=== PATIENT | female | born 1975 | race African-American/Black ===

== ENCOUNTER 2017-03-31 08:40 | Outpatient (CLI) | payer OTHER ==
--- NOTE | 2017-03-31 10:43 | MRI ---
MRI CERVICAL SPINE: HISTORY: Shoulder and neck pain. FINDINGS: Multiplanar, multisequence noncontrast-enhanced MRI images cervical spine obtained. Comparison is ma de to previous exam from 06/14/14. MRI images cervical spine demonstrate a small mid cervical syrinx unchanged since the previous compar naomie exam at the C5 level. C1-2, C2-3: Unremarkable. C3-4: There is a mild broad-based disk bulge minimally but not significantly compressing the thecal sac. The neural foramen are patent. C4-5: There is a mild broad-based disk bulge minimally but not significantly compressing the thecal sac. The neural foramen are patent. C5-6: There is a broad-based disk-osteophyte complex centrally minimally but not significantly compr essing the thecal sac. The right neural foramen is patent. There is moderate left C5-6 neural derrell inal narrowing unchanged since the previous comparison exam. C6-7 and C7-T1: Unremarkable. IMPRESSION: 1. Broad-based disk bulges centrally at C4-5 and C5-6 with mild to moderate left C5-6 neural foramin al narrowing. 2. Stable C5 syrinx. POS: [facility]
== END 2017-03-31 08:41 | disposition home or self-care (01) ==
LOC: MRI 08:40
PROVIDERS: ATTEND Neurological Surgery
DX: M47.812 Spondylosis without myelopathy or radiculopathy, cervical region (principal); M50.221 Other cervical disc displacement at C4-C5 level; M50.222 Other cervical disc displacement at C5-C6 level; M99.51 Intervertebral disc stenosis of neural canal of cervical region
CPT/HCPCS: 72141

== ENCOUNTER 2017-07-19 15:27 | Outpatient (CLI) | payer OTHER ==
[~2017-07-19 15:27] MED LIST: Iopamidol 370 76% 100 ML VIAL ONE
== END 2017-07-19 15:28 | disposition home or self-care (01) ==
LOC: BICCT 15:27
PROVIDERS: ATTEND Internal Medicine Gastroenterology
DX: K59.00 Constipation, unspecified (principal); K63.89 Other specified diseases of intestine
CPT/HCPCS: 74177

== ENCOUNTER 2018-02-10 13:00 | Outpatient (CLI) | payer BC | END 2018-02-10 13:01 | disposition home or self-care (01) | LOC: BICMAMMO 13:00 | PROVIDERS: ATTEND Obstetrics & Gynecology | DX: Z12.31 Encounter for screening mammogram for malignant neoplasm of breast (principal); R92.1 Mammographic calcification found on diagnostic imaging of breast | CPT/HCPCS: 77063; 77067 ==

== ENCOUNTER 2018-02-24 12:53 | Outpatient (CLI) | payer BC ==
[~2018-02-24 12:53] MED LIST changes: +Gadobenate Dimeglumine 529 MG/1 ML (20ML VIAL) ONE; -Iopamidol 370 76% 100 ML VIAL ONE
--- NOTE | 2018-02-24 15:20 | MRI ---
MRI ALLIE WITH AND WITHOUT CONTRAST: History Vascular headache, headache x 1 year. Symptoms have worsened over the last 6 months. COMPARISON: None. TECHNIQUE: Brain MRI is performed with and without intravenous Gadolinium administration. Multisequential, mult iplanar imaging is performed. FINDINGS: Calvarium has a normal T1 marrow signal intensity. Midline brain parenchymal structures are unremark able. No hemorrhage on the axial gradient echo sequence. No parenchymal mass, mass effect, or midline shift. Brain volume is ager appropriate. Cortical santoro -white matter differentiation is preserved. Ventricles and sulci are patent and symmetric. No significant T2 and FLAIR white matter hyperintensi ties due to chronic small-vessel ischemic changes. Central arterial flow voids are maintained. Absent restricted diffusion. No pathologic enhancement of the brain parenchyma. Adequate aeration of the sinuses and mastoid air cells. IMPRESSION: 1. Absent restricted diffusion. 2. No acute infarct. 3. No pathologic enhancement of the brain parenchyma. POS: [facility]
== END 2018-02-24 12:54 | disposition home or self-care (01) ==
LOC: BICMRI 12:53
PROVIDERS: ATTEND Psychiatry & Neurology Neurology
DX: G44.1 Vascular headache, not elsewhere classified (principal)
CPT/HCPCS: 70553; A9579

== ENCOUNTER 2018-06-09 12:36 | Outpatient (CLI) | payer BC ==
[~2018-06-09 12:36] MED LIST changes: -Gadobenate Dimeglumine 529 MG/1 ML (20ML VIAL) ONE; +Iopamidol 370 76% 100 ML VIAL ONE
--- NOTE | 2018-06-09 15:17 | CT ---
CT ABDOMEN AND PELVIS WITH CONTRAST: Multiple axial tomograms are obtained through the abdomen and pelvis with IV enhancement. Oral contr ast was given. INDICATION: Epigastric pain. Nausea, reflux. Irritable bowel syndrome. COMPARISON: Comparison is made to CT of 07/19/2017. FINDINGS: Lung bases clear. Liver, spleen, and pancreas are unremarkable. There is mild fold thickening involving the duodenal C loop. There is mild nonspecific distention of jejunal loops with some mild fold thickening noted. Ileal loops are unremarkable with minimal distention. Colon unremarkable. No adenopathy. Aorta normal caliber. Images through the pelvis show evidence of 2 small adjacent cysts in the right pelvis. These were no johanna on the exam of 07/19/2017 and are essentially unchanged and are consistent with small ovarian cyst s. IMPRESSION: Mild fold thickening involving the duodenum and jejunum with mild nonspecific distention. Similar fi ndings were noted in 2018. Consider esophagogastroduodenoscopy and/or upper gastrointestinal to furt her evaluate. POS: [facility]
== END 2018-06-09 12:37 | disposition home or self-care (01) ==
LOC: BICCT 12:36
PROVIDERS: ATTEND Physician Assistant Medical
DX: R10.13 Epigastric pain (principal); K21.9 Gastro-esophageal reflux disease without esophagitis; K58.1 Irritable bowel syndrome with constipation; R11.0 Nausea; R13.10 Dysphagia, unspecified; K63.89 Other specified diseases of intestine
CPT/HCPCS: 74177; Q9967

== ENCOUNTER 2018-10-20 13:23 | Outpatient (CLI) | payer BC ==
--- NOTE | 2018-10-20 14:17 | MMO ---
Right Breast MAMMO Unilat Diag [facility]DI [facility]. CLINICAL HISTORY: Patient is 43 years old and is seen for diagnostic exam and lump or thickening in the right breast. The patient has no family history of breast cancer. The patient has no personal history of cancer. The patient has a history of left needle biopsy - benign. VIEWS: The views performed were: right craniocaudal with tomosynthesis; right mediolateral oblique with tomosynthesis; and right mediolateral with tomosynthesis. FILMS COMPARED: The present examination has been compared to prior imaging studies performed at [facility] on 05/13/2015, 06/24/2016, 02/10/2018 and 10/20/2018. MAMMOGRAM FINDINGS: The breast is heterogeneously dense, which could obscure a lesion on mammography. There are no suspicious masses, calcifications or areas of architectural distortion. There are benign appearing calcifications in the right breast. At the palpable marker, no mammographic abnormailty. Refer to separate US report. There are no suspicious masses, suspicious calcifications, or new areas of architectural distortion. IMPRESSION: THERE IS NO MAMMOGRAPHIC EVIDENCE OF MALIGNANCY. WITH REGARD TO THE PALPABLE FOCUS, FURTHER EVALUATION INCLUDING ADDITIONAL IMAGING AND/OR BIOPSY SHOULD BE BASED ON CLINICAL FINDINGS/SUSPICION. A ROUTINE FOLLOW-UP MAMMOGRAM IN 1 YEAR IS RECOMMENDED. THE RESULTS OF THIS EXAM WERE SENT TO THE PATIENT. ACR BI-RADS Category 2 - Benign finding MAMMOGRAPHY NOTE: 1. A negative mammogram report should not delay a biopsy if a dominant of clinically suspicious mass is present. 2. Approximately 10% to 15% of breast cancers are not detected by mammography. 3. Adenosis and dense breasts may obscure an underlying neoplasm. Reported by: VICTOR MANUEL GIBBONS MD Electonically Signed: [id number]
--- NOTE | 2018-10-20 16:20 | ULT ---
EXAM: RIGHT BREAST ULTRASOUND: 10/20/18 HISTORY: Palpable focus in the right breast. COMPARISON: 05/13/15. TECHNIQUE: Targeted sonographic imaging of the right breast performed at the 1 o'clock position, which is the re gion of concern. Static images are reviewed. After reading static images, real time imaging was perfo rmed in the presence of the radiologist. FINDINGS: Static and real time images demonstrate normal dense fibroglandular tissue. No solid or cystic masses . No shadowing architectural distortion. IMPRESSION: BIRADS 2: Benign Finding(s) Routine annual screening mammography (for women over age 40). RECOMMENDATIONS: Annual mammogram. With regard to the palpable focus, further evaluation including additional imaging and/or biopsy can be based upon clinical finding and/or suspicion. POS: [facility]
== END 2018-10-20 13:24 | disposition home or self-care (01) ==
LOC: BICMAMMO 13:23
PROVIDERS: ATTEND Clinical Nurse Specialist Medical-Surgical
DX: N63.10 Unspecified lump in the right breast, unspecified quadrant (principal)
CPT/HCPCS: G0279

== ENCOUNTER 2019-10-26 12:56 | Outpatient (CLI) | payer BC ==
--- NOTE | 2019-10-26 13:35 | MMO ---
Bilateral MAMMO Bilat Screen [facility]. CLINICAL HISTORY: Patient is 44 years old and is seen for screening. The patient has no family history of breast cancer. The patient has no personal history of cancer. The patient has a history of left needle biopsy - benign. VIEWS: The views performed were: bilateral craniocaudal with tomosynthesis and bilateral mediolateral oblique with tomosynthesis. FILMS COMPARED: The present examination has been compared to prior imaging studies performed at [facility] on 06/24/2016, 02/10/2018 and 10/20/2018. This study has been interpreted with the assistance of computer-aided detection. MAMMOGRAM FINDINGS: The breasts are heterogeneously dense, which could obscure a lesion on mammography. There are stable benign appearing calcifications seen in both breasts. A biopsy clip is seen in the left breast. There are no suspicious masses, suspicious calcifications, or new areas of architectural distortion. IMPRESSION: THERE IS NO MAMMOGRAPHIC EVIDENCE OF MALIGNANCY. A ROUTINE FOLLOW-UP MAMMOGRAM IN 1 YEAR IS RECOMMENDED. THE RESULTS OF THIS EXAM WERE SENT TO THE PATIENT. ACR BI-RADS Category 2 - Benign finding MAMMOGRAPHY NOTE: 1. A negative mammogram report should not delay a biopsy if a dominant of clinically suspicious mass is present. 2. Approximately 10% to 15% of breast cancers are not detected by mammography. 3. Adenosis and dense breasts may obscure an underlying neoplasm. Reported by: XANDER COX MD Electonically Signed: [id number]
== END 2019-10-26 12:57 | disposition home or self-care (01) ==
LOC: BICMAMMO 12:56
PROVIDERS: ATTEND Clinical Nurse Specialist Medical-Surgical
DX: Z12.31 Encounter for screening mammogram for malignant neoplasm of breast (principal); Z91.89 Other specified personal risk factors, not elsewhere classified
CPT/HCPCS: 77063; 77067

== ENCOUNTER 2020-02-18 08:34 | Outpatient (CLI) | payer BC ==
[2020-02-18] MEDS ORDERED: EPINEPHrine 1 MG/ML AMP ONE (09:11)
[2020-02-18] MEDS ORDERED: Gadobenate Dimeglumine 529 MG/1 ML (20ML VIAL) ONE (09:11)
[2020-02-18] MEDS ORDERED: Iopamidol 300 61% 50 ML VIAL FS ONE (09:11)
[2020-02-18] MEDS ORDERED: Lidocaine 1% PF 10 ML AMP ONE (09:11)
[2020-02-18] MEDS ORDERED: Magnevist 469MG/ML 20 ML VIAL ONE (09:22)
--- NOTE | 2020-02-18 11:33 | RAD ---
Exam: Left shoulder arthrogram HISTORY: Persistent left shoulder pain. FINDINGS: 3 view rehab nurse radiograph of left shoulder demonstrates preservation of glenohumeral joint space. No di slocation or fracture. Successful left shoulder arthrogram. Total of 13 mL of the contrast admixture was administered. Patie nt tolerated the procedure well. No immediate or postprocedure complications. Exposure: 38.2 mcg/cm2. 0.5 minutes. IMPRESSION: Successful left shoulder arthrogram. Transcribed Date/Time: 02/18/2020 12:28 PM
--- NOTE | 2020-02-18 12:04 | MRI ---
MRI Upper Ext Jt Lt W Con History: Shoulder pain Comparison: Shoulder radiographs November 2019 Findings: Biceps tendon: The extra articular and intra-articular biceps tendon is intact. Labrum: Intact. No labral tear. No significant paralabral ganglion pseudocyst. Rotator cuff: Supraspinatus and infraspinatus tendons are intact. No significant articular surface te aring. Subscapularis is intact. Teres minor is intact. Muscles: Muscle signal and bulk is maintained. Cartilage: No chondral defect. Bones: Mild degenerative changes of the acromioclavicular joint with small distal clavicular erosions . Moderate acromioclavicular joint effusion. Trace subacromial/subdeltoid bursa effusion. Type I acromion. Normal glenoid version. Impression: 1. Intact biceps tendon and acetabular labrum. 2. 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 3. Intact rotator cuff without tear. 4. Intact articular cartilage.
== END 2020-02-18 08:35 | disposition home or self-care (01) ==
LOC: RAD 08:34
PROVIDERS: ATTEND Orthopaedic Surgery
DX: M19.012 Primary osteoarthritis, left shoulder (principal); M89.512 Osteolysis, left shoulder; M25.412 Effusion, left shoulder
CPT/HCPCS: 23350; A9577; A9579; J0171; J2001; Q9967

== ENCOUNTER 2020-11-24 09:49 | Outpatient (CLI) | payer BC | END 2020-11-24 09:50 | disposition home or self-care (01) | LOC: BICRAD 09:49 | PROVIDERS: ATTEND Clinical Nurse Specialist Medical-Surgical | DX: J12.82 Pneumonia due to coronavirus disease 2019 (principal); J98.4 Other disorders of lung | CPT/HCPCS: 71046 ==

== ENCOUNTER 2020-12-12 09:44 | Outpatient (CLI) | payer BC | END 2020-12-12 09:45 | disposition home or self-care (01) | LOC: BICRAD 09:44 | PROVIDERS: ATTEND Clinical Nurse Specialist Medical-Surgical | DX: U07.1 COVID-19 (principal); J12.82 Pneumonia due to coronavirus disease 2019 | CPT/HCPCS: 71046 ==

== ENCOUNTER 2021-02-04 13:53 | Outpatient (CLI) | payer BC | END 2021-02-04 13:54 | disposition home or self-care (01) | LOC: BICRAD 13:53 | PROVIDERS: ATTEND Clinical Nurse Specialist Medical-Surgical | DX: B94.8 Sequelae of other specified infectious and parasitic diseases (principal) | CPT/HCPCS: 71046 ==

== ENCOUNTER 2021-06-05 13:04 | Outpatient (CLI) | payer BC | END 2021-06-05 13:05 | disposition home or self-care (01) | LOC: BICULT 13:04 | PROVIDERS: ATTEND Registered Nurse Community Health | DX: R10.32 Left lower quadrant pain (principal); R10.2 Pelvic and perineal pain; Z90.49 Acquired absence of other specified parts of digestive tract | CPT/HCPCS: 76770; 76856 ==

== ENCOUNTER 2021-06-12 11:01 | Outpatient (CLI) | payer BC | END 2021-06-12 11:02 | disposition home or self-care (01) | LOC: BICULT 11:01 | PROVIDERS: ATTEND Clinical Nurse Specialist Medical-Surgical | DX: R10.2 Pelvic and perineal pain (principal); Z90.49 Acquired absence of other specified parts of digestive tract | CPT/HCPCS: 76700 ==

== ENCOUNTER 2021-10-02 10:21 | Outpatient (CLI) | payer BC | END 2021-10-02 10:22 | disposition home or self-care (01) | LOC: NM 10:21 | PROVIDERS: ATTEND Physician Assistant Medical | DX: K21.9 Gastro-esophageal reflux disease without esophagitis (principal); R68.81 Early satiety; K59.09 Other constipation | CPT/HCPCS: 78264; A9541 ==

== ENCOUNTER 2021-11-20 11:33 | Outpatient (CLI) | payer BC | END 2021-11-20 11:34 | disposition home or self-care (01) | LOC: BICRAD 11:33 → RAD 11:34 | PROVIDERS: ATTEND Nurse Practitioner Family | DX: M94.0 Chondrocostal junction syndrome [Tietze] (principal) | CPT/HCPCS: 71046 ==

== ENCOUNTER 2021-11-23 15:55 | Outpatient (CLI) | payer BC | END 2021-11-23 15:56 | disposition home or self-care (01) | LOC: BICRAD 15:55 | PROVIDERS: ATTEND Internal Medicine Rheumatology | DX: M54.2 Cervicalgia (principal); M47.812 Spondylosis without myelopathy or radiculopathy, cervical region | CPT/HCPCS: 72052 ==

== ENCOUNTER 2021-12-25 13:37 | Outpatient (CLI) | payer BC | END 2021-12-25 13:38 | disposition home or self-care (01) | LOC: BICULT 13:37 | PROVIDERS: ATTEND Urology | DX: N13.39 Other hydronephrosis (principal) | CPT/HCPCS: 76770 ==

== ENCOUNTER 2022-01-15 14:20 | Outpatient (CLI) | payer BC | END 2022-01-15 14:21 | disposition home or self-care (01) | LOC: BICMAMMO 14:20 | PROVIDERS: ATTEND Physician Assistant | DX: N64.4 Mastodynia (principal); N70.11 Chronic salpingitis | CPT/HCPCS: 77066; G0279 ==

== ENCOUNTER 2022-02-04 18:00 | Outpatient (CLI) | payer BC | END 2022-02-04 18:01 | disposition home or self-care (01) | LOC: SLEEPLAB 18:00 | PROVIDERS: ATTEND Registered Nurse Community Health | DX: G47.33 Obstructive sleep apnea (adult) (pediatric) (principal); R06.83 Snoring; G47.00 Insomnia, unspecified | CPT/HCPCS: 95800 ==

== ENCOUNTER 2022-08-13 13:10 | Outpatient (CLI) | payer BC | END 2022-08-13 13:11 | disposition home or self-care (01) | LOC: CT 13:10 | PROVIDERS: ATTEND Registered Nurse Hospice | DX: R10.11 Right upper quadrant pain (principal) | CPT/HCPCS: 74178; Q9967 ==

== ENCOUNTER 2022-08-20 13:37 | Outpatient (CLI) | payer BC | END 2022-08-20 13:38 | disposition home or self-care (01) | LOC: ULT 13:37 | PROVIDERS: ATTEND Registered Nurse Hospice | DX: R10.11 Right upper quadrant pain (principal) | CPT/HCPCS: 76700 ==

== ENCOUNTER 2023-01-21 13:05 | Outpatient (CLI) | payer OTHER | END 2023-01-21 13:06 | disposition home or self-care (01) | LOC: BICRAD 13:05 | PROVIDERS: ATTEND Registered Nurse Hospice | DX: M25.461 Effusion, right knee (principal); R06.02 Shortness of breath | CPT/HCPCS: 71046 ==

== ENCOUNTER 2023-01-28 13:35 | Outpatient (CLI) | payer OTHER | END 2023-01-28 13:36 | disposition home or self-care (01) | LOC: BICMAMMO 13:35 | PROVIDERS: ATTEND Registered Nurse Hospice | DX: R92.321 Mammographic fibroglandular density, right breast (principal) | CPT/HCPCS: 77066; G0279 ==

== ENCOUNTER 2023-06-07 16:03 | Outpatient (CLI) | payer OTHER | END 2023-06-07 16:04 | disposition home or self-care (01) | LOC: ULT 16:03 | PROVIDERS: ATTEND Registered Nurse Hospice | DX: R07.89 Other chest pain (principal) ==

== ENCOUNTER 2023-07-01 12:58 | Outpatient (CLI) | payer OTHER | END 2023-07-01 12:59 | disposition home or self-care (01) | LOC: BICMAMMO 12:58 | PROVIDERS: ATTEND Registered Nurse Hospice | DX: N63.21 Unspecified lump in the left breast, upper outer quadrant (principal) | CPT/HCPCS: 76642; 77066; G0279 ==

== ENCOUNTER 2024-01-20 12:55 | Outpatient (CLI) | payer OTHER | END 2024-01-20 12:56 | disposition home or self-care (01) | LOC: ULT 12:55 | PROVIDERS: ATTEND Physician Assistant Medical | DX: R10.9 Unspecified abdominal pain (principal); R13.10 Dysphagia, unspecified | CPT/HCPCS: 76700 ==

== ENCOUNTER → 2024-03-07 | Outpatient (CLI) | payer OTHER | LOC: BICRAD 12:41 | PROVIDERS: ATTEND Nurse Practitioner Family | DX: M06.4 Inflammatory polyarthropathy (principal) ==

== ENCOUNTER 2024-03-30 13:54 | Outpatient (CLI) | payer OTHER | END 2024-03-30 13:55 | disposition home or self-care (01) | LOC: EDBD → BICMAMMO 13:54 → EDBD 14:30 | PROVIDERS: ATTEND Physician Assistant | DX: N63.10 Unspecified lump in the right breast, unspecified quadrant (principal) | CPT/HCPCS: 77066; G0279 ==

== ENCOUNTER 2024-05-11 16:01 | Outpatient (CLI) | payer OTHER | END 2024-05-11 16:02 | disposition home or self-care (01) | LOC: BICRAD 16:01 | PROVIDERS: ATTEND Nurse Practitioner Family | DX: M79.671 Pain in right foot (principal) ==